=== PATIENT | male | born 1940 | race Caucasian/White ===

== ENCOUNTER → 2020-04-25 | Outpatient (CLI) | payer OTHER | LOC: KOH-I 13:30 | DX: N18.30 Chronic kidney disease, stage 3 unspecified (principal) | CPT/HCPCS: 76775 ==

== ENCOUNTER → 2021-01-24 | Outpatient (CLI) | payer OTHER | LOC: WCC 07:26 | DX: I12.9 Hypertensive chronic kidney disease with stage 1 through stage 4 chronic kidney disease, or unspecified chronic kidney disease (principal); M10.00 Idiopathic gout, unspecified site; I25.10 Atherosclerotic heart disease of native coronary artery without angina pectoris; N18.9 Chronic kidney disease, unspecified | CPT/HCPCS: G0463 ==

== ENCOUNTER 2021-02-05 09:32 | Emergency (ER) | payer OTHER ==
[2021-02-05] MEDS ORDERED: HYDROCODON-ACE1 EAC4 PO (11:34)
== END 2021-02-05 11:45 | disposition home or self-care (01) ==
LOC: ER1 09:32
DX: S52.572A Other intraarticular fracture of lower end of left radius, initial encounter for closed fracture (principal); W19.XXXA Unspecified fall, initial encounter; Y92.009 Unspecified place in unspecified non-institutional (private) residence as the place of occurrence of the external cause
CPT/HCPCS: 29125; 73110; 99283

== ENCOUNTER → 2021-02-12 | Outpatient (CLI) | payer OTHER ==
[~2021-02-12] MED LIST: ASPIRIN CHEWABL81 MG PO; HYDRALAZINE HCL50 MG PO; HYDROCODON-ACE1 EAC4 PO; LASIX 40 MG TAB40 MG PO; LIPITOR80 MG PO; LOPRESSOR 50 MG50 MG PO; NITROSTAT0.3 MG SL; NORVASC5 MG PO; ONE-A-DAY MEN'1 EAC3 PO; PLAVIX75 MG PO; PREDNISONE 10 M10 MG PO; RANEXA500 MG PO; STOOL SOFTENER100 M1 PO
== END ==
LOC: RAD 11:39
DX: L03.113 Cellulitis of right upper limb (principal)
CPT/HCPCS: 73080

== ENCOUNTER → 2021-02-16 | Day surgery (SDC) | payer OTHER ==
[~2021-02-16] VITALS: Ht 177.8 cm; Wt 102.5 kg
[2021-02-16 09:10] LABS: HEMOGLOBIN 12.3 gm/dl (14.0-17.5); RED BLOOD COUNT 4.18 M/UL (4.20-5.50); WHITE BLOOD COUNT 10.5 K/UL (4.5-11.0)
== END | disposition home or self-care (01) ==
LOC: OR 02-12 07:30
PROVIDERS: Orthopaedic Surgery
DX: S52.572A Other intraarticular fracture of lower end of left radius, initial encounter for closed fracture (principal); S62.102A Fracture of unspecified carpal bone, left wrist, initial encounter for closed fracture; X58.XXXA Exposure to other specified factors, initial encounter; I10 Essential (primary) hypertension; I25.10 Atherosclerotic heart disease of native coronary artery without angina pectoris; E78.5 Hyperlipidemia, unspecified; G47.30 Sleep apnea, unspecified; K21.9 Gastro-esophageal reflux disease without esophagitis; M17.0 Bilateral primary osteoarthritis of knee; Z85.828 Personal history of other malignant neoplasm of skin; Z95.1 Presence of aortocoronary bypass graft; Z95.818 Presence of other cardiac implants and grafts; Z79.01 Long term (current) use of anticoagulants; Z79.82 Long term (current) use of aspirin; Z79.899 Other long term (current) drug therapy; Z87.891 Personal history of nicotine dependence
CPT/HCPCS: 73100; 76000; 80048; 85027; 85610; 85730; 93005; C1713; J0690; J1100; J2001; J2250; J2704; J2795; J3010; J7120

== ENCOUNTER → 2021-10-01 | Outpatient (CLI) | payer OTHER | LOC: LAB 10:49 | DX: Z20.822 Contact with and (suspected) exposure to COVID-19 (principal) | CPT/HCPCS: U0002 ==